=== PATIENT | female | born 1980 | race Caucasian/White ===

== ENCOUNTER 2023-07-15 21:37 | Emergency (ER) | payer OTHER ==
[2023-07-15] MEDS ORDERED: DEXAMETHASONE SOD PHOSPHATE 10 MG/ML 1 ML VIAL IM STA (22:50)
[2023-07-15] MEDS ORDERED: MECLIZINE 12.5 MG TAB PO STA (22:50)
--- NOTE | 2023-07-15 22:55 | ED ---
ENT HPI - General Chief complaint: ENT Stated complaint: Right Ear Pain, Dizziness, Anxiety Time Seen by Provider: 07/15/23 22:38 Source: patient, RN notes reviewed, old records reviewed Mode of arrival: ambulatory Limitations: no limitations - History of Present Illness Initial comments: 42-year-old female presents ambulatory with complaints of right ear pain that started Friday on an airplane. Did see her primary care doctor yesterday and prescribed Augmentin for a right ear infection. took 4 doses but continues to have ear pain. Denies any drainage or bleeding. pain is also causing right sided dental pain and dizziness. Also reports having palpitations and has a history of WPW. No palpitations at this time. Patient states she does have a history of anxiety did take her clonazepam with no relief. Patient denies any fevers. had eustachian tubes placed 4 years ago but fell out. History of chest pain angina, anxiety. Surgical history of appendectomy, cardiac ablation, hysterectomy MD complaint: ear pain (right) Location: R ear Severity scale (1-10): 8 Quality: constant Consistency: constant Improves with: none Associated Symptoms: other (dizziness, dental pain, anxiety) - Related Data Previous Rx's Medication Instructions Recorded Meclizine [Antivert] 25 mg PO TID PRN #15 tab 07/15/23 Allergies Allergy/AdvReac Type Severity Reaction Status Date / Time No Known Allergies Allergy Verified 07/15/23 21:46 Review of Systems ROS Statement: Those systems with pertinent positive or pertinent negative responses have been documented in the HPI. ROS Other: All systems not noted in ROS Statement are negative. Past Medical History Past Medical History: Chest Pain / Angina, Thyroid Disorder History of Any Multi-Drug Resistant Organisms: None Reported Past Surgical History: Appendectomy, Bladder Surgery, Cardiac Ablation, Hysterectomy Past Psychological History: Anxiety Smoking Status: Former smoker Past Alcohol Use History: Rare Past Drug Use History: None Reported General Exam Limitations: no limitations General appearance: alert Head exam: Present: atraumatic, normocephalic Eye exam: Present: normal appearance. Absent: scleral icterus, conjunctival injection, periorbital swelling, periorbital tenderness ENT exam: Present: normal exam, normal oropharynx, mucous membranes moist, normal external ear exam (right TM buldging, no drainage) Neck exam: Present: normal inspection, tenderness (right lateral), full ROM. Absent: meningismus, lymphadenopathy, thyromegaly Respiratory exam: Present: normal lung sounds bilaterally. Absent: respiratory distress, accessory muscle use Cardiovascular Exam: Present: regular rate, normal rhythm Extremities exam: Present: normal capillary refill. Absent: pedal edema Neurological exam: Present: alert, oriented X3 Psychiatric exam: Present: normal affect, normal mood Skin exam: Present: warm, dry, normal color. Absent: cyanosis, diaphoretic, petechiae, pallor Course Vital Signs 07/15/23 07/15/23 21:38 23:03 Temperature 97.4 F L 97.6 F Pulse Rate 90 89 Respiratory 18 16 Rate Blood Pressure 162/114 126/85 O2 Sat by Pulse 100 99 Oximetry Medical Decision Making - Medical Decision Making Was pt. sent in by a medical professional or institution (, PA, CLINICAL RESEARCH NURSE, urgent care, hospital, or retirement...) When possible be specific @ -No Did you speak to anyone other than the patient for history (EMS, parent, family, police, friend...)? What history was obtained from this source @ -No Did you review nursing and triage notes (agree or disagree)? Why? @ -I reviewed and agree with nursing and triage notes Were old charts reviewed (outside hosp., previous admission, EMS record, old EKG, old radiological studies, urgent care reports/EKG's, retirement records)? Report findings @ -No old charts were reviewed Differential Diagnosis (chest pain, altered mental status, abdominal pain women, abdominal pain men, vaginal bleeding, weakness, fever, dyspnea, syncope, headache, dizziness, GI bleed, back pain, seizure, CVA, palpatations, mental health, musculoskeletal)? @ -Otitis media, tympanic membrane rupture, herpes zoster, dental abscess, this is not a known close list EKG interpreted by me (3pts min.). @ n/a X-rays interpreted by me (1pt min.). @ -None done CT interpreted by me (1pt min.). @ -None done U/S interpreted by me (1pt. min.). @ -None done What testing was considered but not performed or refused? (CT, X-rays, U/S, labs)? Why? @ -None What meds were considered but not given or refused? Why? @ -None Did you discuss the management of the patient with other professionals (professionals i.e. , PA, CLINICAL RESEARCH NURSE, lab, RT, psych nurse, social welfare clerk, academic affairs director, teacher, marketing and communications officer, case folder)? Give summary @ -No Was smoking cessation discussed for >3mins.? @ -No Was critical care preformed (if so, how long)? @ -No Were there social determinants of health that impacted care today? How? (Homelessness, low income, unemployed, alcoholism, drug addiction, transportation, low edu. Level, literacy, decrease access to med. care, skilled nursing, rehab)? @ -No Was there de-escalation of care discussed even if they declined (Discuss DNR or withdrawal of care, Hospice)? DNR status @ -No What co-morbidities impacted this encounter? (DM, HTN, Smoking, COPD, CAD, Cancer, CVA, ARF, Chemo, Hep., AIDS, mental health diagnosis, sleep apnea, morbid obesity)? @ -History of angina, anxiety. Surgical history of appendectomy, cardiac ablation, hysterectomy Was patient admitted / discharged? Hospital course, mention meds given and route, prescriptions, significant lab abnormalities, going to OR and other pertinent info. @ -Discharged 42-year-old female presents ambulatory with complaints of right ear pain that started Friday on an airplane. Did see her primary care doctor yesterday and prescribed Augmentin for a right ear infection. States took 4 doses but continues to have ear pain. Denies any drainage or bleeding. States pain is also causing right sided dental pain and dizziness. Also reports having palpitations and has a history of WPW. No palpitations at this time. Patient states she does have a history of anxiety did take her clonazepam with no relief. Patient denies any fevers. had eustachian tubes placed 4 years ago but fell out. On physical exam there is bulging of the right tympanic membrane with minimal erythema. No drainage. No facial swelling. No trismus. EKG performed for patient's report of WPW with palpitations, interpreted by me shows sinus rhythm with a ventricular rate of 79, NE interval 0.140, QRS 0.84, QTC 0.404 She was given a dose of Decadron given for facial pain, Antivert given for vertigo. She was given a prescription for Antivert for any vertigo. She was reassured that antibiotics should resolve her symptoms. Tylenol and or Motrin for pain and discomfort and follow up with her primary care doctor this week. She is agreeable to this plan of care. Case discussed with Dr Antonio. Undiagnosed new problem with uncertain prognosis? @ -No Drug Therapy requiring intensive monitoring for toxicity (Heparin, Nitro, Insulin, Cardizem)? @ -No Were any procedures done? @ -No Diagnosis/symptom? @ -Otitis media, vertigo Acute, or Chronic, or Acute on Chronic? @ -Acute Uncomplicated (without systemic symptoms) or Complicated (systemic symptoms)? @ -Uncomplicated Side effects of treatment? @ -No Exacerbation, Progression, or Severe Exacerbation? @ -No Poses a threat to life or bodily function? How? (Chest pain, USA, ID, pneumonia, PE, COPD, DKA, ARF, appy, cholecystitis, CVA, Diverticulitis, Homicidal, Suicidal, threat to staff... and all critical care pts) @ -No Disposition Clinical Impression: Vertigo, Otitis media, right Disposition: HOME SELF-CARE Condition: Good Additional Instructions: Take Antivert as prescribed for any dizziness. Continue the antibiotics prescribed by your primary care doctor for otitis media. Follow-up with your doctor this week for reevaluation. Prescriptions: Meclizine [Antivert] 25 mg PO TID PRN #15 tab PRN Reason: Vertigo Is patient prescribed a controlled substance at d/c from ED?: No Referrals: Nonstaff,Physician [Primary Care Provider] - 1-2 days Time of Disposition: 23:42
[2023-07-15 23:04] VITALS: BP 126/85; PULSE 89; RESP 16; TEMP 97.6
== END 2023-07-15 23:55 | disposition home or self-care (01) ==
LOC: EC 21:37
DX: H66.91 Otitis media, unspecified, right ear (principal); R42 Dizziness and giddiness; F41.9 Anxiety disorder, unspecified; Z87.891 Personal history of nicotine dependence
CPT/HCPCS: 93005; 99284; 96372; J1100